=== PATIENT | female | born 1960 | race Caucasian/White ===

== ENCOUNTER → 2016-10-18 | Outpatient (CLI) | payer OTHER ==
[~2016-10-18] MED LIST: ADVIN25/60 INH; FLUT0.15; LISI-788 PO; WARF2TAB PO
== END | disposition home or self-care (01) ==
LOC: C.RDSM 13:00
PROVIDERS: ATTEND Physical Medicine & Rehabilitation Sports Medicine
DX: M25.561 Pain in right knee (principal); Z96.651 Presence of right artificial knee joint

== ENCOUNTER → 2017-09-12 | Outpatient (CLI) | payer OTHER ==
--- NOTE | 2017-09-12 11:22 | DIAGNOSTIC IMAGING REPORT ---
L HAND MIN 3 VIEWS CLINICAL HISTORY: LEFT HAND PAIN pain COMPARISON: None. DISCUSSION: Moderate degenerative change first carpometacarpal joint. Mild degenerative changes second carpometacarpal joint. All remaining osseous structures are unremarkable. No evidence for fracture or dislocation. There is no evidence for soft tissue swelling. IMPRESSION: Moderate degenerative change first carpometacarpal joint and to a lesser extent second carpometacarpal joint. The above report was generated using voice recognition software. It may contain grammatical, syntax or spelling errors. Electronically signed by: Chandrakant Tidwell M.D. 09/12/2017 11:21 AM Dictated Date/Time: 09/12/2017 11:19 AM
== END | disposition home or self-care (01) ==
LOC: C.RDSM 19:38
PROVIDERS: ATTEND Physician Assistant
DX: M79.642 Pain in left hand (principal)

== ENCOUNTER → 2017-10-17 | Outpatient (CLI) | payer OTHER | END | disposition home or self-care (01) | LOC: C.RDSM 15:15 | PROVIDERS: ATTEND Physical Medicine & Rehabilitation Sports Medicine | DX: M17.0 Bilateral primary osteoarthritis of knee (principal); Z96.651 Presence of right artificial knee joint ==

== ENCOUNTER 2018-10-25 06:19 | Inpatient (IN) ==
--- NOTE | 2018-09-29 14:41 | PAT Medication Instructions ---
Medication Instructions Date of Service September 29, 2018 Home Medications Cbd Oil 30 mg PO BID PRN [Advair Diskus] 1 inh INHALATION QAM fluticasone propionate [Flonase Allergy Relief] 1 spray INTRANASAL DAILY PRN ibuprofen 800 mg PO TID lisinopril-hydrochlorothiazide 1 tab PO QAM tramadol 50 - 100 mg PO Q6H PRN ASK your surgeon for instructions ibuprofen 800 mg PO TID DO NOT take the morning of surgery Cbd Oil 30 mg PO BID PRN lisinopril-hydrochlorothiazide 1 tab PO QAM Take morning of surgery With a small sip of water, OTHERWISE NOTHING TO EAT OR DRINK AFTER MIDNIGHT: [Advair Diskus] 1 inh INHALATION QAM fluticasone propionate [Flonase Allergy Relief] 1 spray INTRANASAL DAILY PRN (if needed) tramadol 50 - 100 mg PO Q6H PRN (if needed, may be taken up to four hours before surgery) Other Notes If you have any questions please call us at [phone] or [phone] or [phone] or [phone]
--- NOTE | 2018-10-02 09:02 | Anesthesiology Consultation ---
Date of Service October 02, 2018 Assessment & Plan (1) Encounter for pre-operative examination: Chart Review Chart Review: Acceptable Risk for Surgery and Patient seen in Pre Admission Testing Teaching & Discussion Pre-Anesthesia Teaching/Discussion Notes: Instructed NPO after midnight before surgery,except medications with 15 cc of water. Medication instructions provided according to the PAT guidelines. History Surgery Operation Date: 10/25/18 09:00 Proposed Procedures p Left Total Knee Arthroplasty - Shahab Flores MD Height/Weight Height: 5 ft 2 in Weight: 109.4 kg Allergies Allergy/AdvReac Type Severity Reaction Status Date / Time amoxicillin AdvReac Intermediate YEAST Verified 09/28/18 11:21 INFECTION codeine AdvReac Intermediate HALLUCINATI Verified 09/28/18 11:21 ONS Medications Home Medications Medication Instructions Recorded Confirmed Last Taken Cbd Oil 30 mg PO BID PRN 03/17/18 03/28/18 03/26/18 fluticasone propion-salmeterol 1 inh INHALATION QAM 03/17/18 09/28/18 03/28/18 05:20 [Advair Diskus] fluticasone propionate [Flonase 1 spray INTRANASAL DAILY PRN 03/17/18 09/28/18 03/28/18 05:20 Allergy Relief] ibuprofen 800 mg PO TID 03/17/18 09/28/18 03/20/18 lisinopril-hydrochlorothiazide 1 tab PO QAM 03/17/18 09/28/18 03/27/18 tramadol 50 - 100 mg PO Q6H PRN 03/17/18 09/28/18 Unknown Past Medical History Medical History Asthma STABLE Bradycardia CHRONIC; ASYMPTOMATIC WITH BASELINE IN 50-60'S DJD (degenerative joint disease) Hypertension Jaw pain LEFT SIDED FELT 2/2 GRINDING HS; NO LOCKING Morbid obesity Osteoarthritis Past Family History Family History Brother Family history of diabetes mellitus Sister Family history of diabetes mellitus Mother Family history of diabetes mellitus Past Surgical History Surgical History H/O arthroscopy of right knee 03/28/18= Grade view 1, MAC 3, ETT 7.0 at [facility] H/O left inguinal hernia repair History of ankle surgery RIGHT History of colonoscopy History of repair of rotator cuff RIGHT History of tooth extraction WISDOM TEETH History of total right knee replacement Past Anesthesia History No Family Hx of Anesthesia Complications and Other Chronic bradycardia; she states she was told perioperative bradycardia resolved post-op with remote surgery. She states she was not told about any issues with subsequent anesthesia History of PONV No Motion Sickness Screening History of Motion Sickness: No Social History Smoking Status: Never smoker Do You Dip or Chew Tobacco: Yes (3 CANS/WEEK- ADVISED NOT TO CHEW AM DOS*) Hx Alcohol Use: Yes Alcohol type: beer and wine alcohol intake frequency: a few times a week Hx Substance Use: Yes substance use type: does not use Substance Use Type Other:: CBD OIL OTC BID PRN ANXIETY/INFLAMMATION Exercise / Class Metabolic Activity III < 4 Walking/Shop/Light housework Review of Systems Patient denies chest pain, shortness of breath, cough, wheezing, palpitations. Physical Exam Vital Signs VITALS BP 124/85 P 68 TEMP 98.1 SP02 95%RA RESP 18 PHYSICAL Full neck and c-spine range of motion. Full TMJ range of motion. TMD 3 finger breaths Mallampati Score 1 Dentition: upper partial Lungs: clear throughout to auscultation Cardiac: regular rate and rhythm, no murmurs noted Spine: normal Carotid arteries: negative bruit Extremities: no edema Short neck Testing Electrocardiogram Date: 09/26/18 SB at 55bpm. Possible LAE. No significant change compared to 03/13/18 EKG per cardio. Chest X-Ray Date: 03/15/18 Findings: + NAD Laboratory Results Blood Type O Positive 10/02/18 09:10 Antibody Screen NEGATIVE 10/02/18 09:10 Urine Color Yellow 10/02/18 09:10 Urine Appearance Clear (Clear) 10/02/18 09:10 Urine pH 5.5 (4.5-7.5) 10/02/18 09:10 Ur Specific [place] 1.023 (1.000-1.030) 10/02/18 09:10 Urine Protein Negative (Negative) 10/02/18 09:10 Urine Glucose (UA) Negative (Negative) 10/02/18 09:10 Urine Ketones Negative (Negative) 10/02/18 09:10 Urine Nitrite Negative (Negative) 10/02/18 09:10 Ur Leukocyte Esterase Negative (Negative) 10/02/18 09:10 09/26/18 WBC 5.36 H/H 14.8/46.6 PLATELETS 225 SODIUM 139 POTASSIUM 4.7 CHLORIDE 99 CO2 28 BUN 16 CREATININE 0.8 GLUCOSE 128 PT 12.8 PTT 28 INR 0.93
[2018-10-02 10:06] LABS: Appearance Urine Clear (Clear); Bilirubin Urine Negative (Negative); Blood Urine Negative (Negative); Color Urine Yellow; Glucose Urine UA Negative (Negative); Ketones Urine Negative (Negative); Leukocyte Esterase Urine Negative (Negative); Nitrite Urine Negative (Negative); Protein Urine Negative (Negative); Specific Gravity Urine 1.023 (1.000-1.030); Urobilinogen Urine Negative (Negative); pH Urine 5.5 (4.5-7.5)
--- NOTE | 2018-10-05 17:31 | History and Physical Report ---
DATE OF ADMISSION: 10/25/2018 CHIEF COMPLAINT: Left knee pain. HISTORY OF PRESENT ILLNESS: This 58-year-old white female presents to the office with complaints of left knee pain that has been ongoing for over 2 years. She has tried activity modification as well as oral pain medications, oral anti-inflammatories, and injection therapy without lasting improvement. She elects to proceed with surgical intervention in hopes of alleviating her pain. Pain is affecting her ADLs. It is worse with weightbearing. She notes night pain. No recent effusions. Preoperative imaging has been obtained. PAST MEDICAL HISTORY: Hypertension, asthma, sleep apnea, osteoarthritis, low back pain, obesity, and history of SI joint dysfunction. Known diverticulosis. PREVIOUS SURGERIES: Herniorrhaphy, ankle surgery, knee arthroscopy, right knee TKA 01/27/2016, right shoulder rotator cuff repair with subacromial decompression 03/28/2018, colonoscopy, numerous tooth extractions. ALLERGIES: KNOWN ALLERGY TO AMOXICILLIN WHICH CAUSES YEAST INFECTIONS AND CODEINE WHICH CAUSES NAUSEA. CURRENT MEDICATIONS: CBD oil, CBD gummies, CBD powder, ibuprofen 800 mg t.i.d. p.r.n., Flonase 1 squirt in each nostril daily, tramadol 50 mg p.o. q. 4 hours p.r.n., HCTZ/lisinopril 25 mg/20 mg p.o. daily, Advair inhaler 2 puffs b.i.d., clindamycin capsules prior to dental visits, Tylenol p.r.n. FAMILY HISTORY: Significant for breast cancer, diabetes, hypertension, CHF, and asthma. SOCIAL HISTORY: The patient is . She lives with her significant other. Employed in construction. No cigarette use. She does use spit tobacco daily. Rare ETOH use. REVIEW OF SYSTEMS: A total of 10 systems were reviewed and are significant only for above stated conditions. PHYSICAL EXAMINATION: GENERAL: Well-developed, well-nourished, obese middle aged white female in no acute distress. Sitting in a chair. Alert and oriented. SKIN: Warm and dry with good turgor. No rashes or lesions. No ecchymosis or erythema. HEENT: Normocephalic, atraumatic. Eyes PERRLA, EOMI. Nares patent bilaterally without turbinate enlargement. Oropharynx without erythema or exudate. No lesions noted. Uvula midline. Oral mucosa moist. Fair dentition. Partial denture plate is noted. Multiple fillings. HEART: RRR. No MGR. LUNGS: Clear to auscultation bilaterally. No crackles, rhonchi or wheezing. Fair air movement. ABDOMEN: Obese. Bowel sounds present x4, soft, nontender. No organomegaly. No masses. MUSCULOSKELETAL: Left knee evaluation reveals no intra-articular effusion. Full terminal extension. Flexion to greater than 100 degrees. Strength is 5/5 with good quad tone. Stable collateral ligaments. No defect in the patellar tendon or quadriceps tendon. She has significant medial joint line pain and peripatellar discomfort with palpation. No lateral joint line discomfort today. Ambulatory with a slightly antalgic gait when she rises from a chair. NEUROLOGIC: Gross sensation is intact across the lower extremities by soft touch. Peripheral pulses are 2+. Cranial nerves II-XII are intact. DATA: Radiographic imaging previously obtained shows end-stage DJD of her left knee. The right knee has a total knee arthroplasty. Hardware is visible. Periarticular osteophytes, subchondral sclerosis, and joint space narrowing are all present in the left knee. IMPRESSION: Left knee end-stage degenerative joint disease. PLAN: Postoperative prescriptions for tramadol and Coumadin will be provided. The patient does not do well with narcotics. She does have hallucinations as well as nausea. Preoperative lab work, EKG, and chest x-ray have been ordered. Medical clearance has been requested from her PCP, Dr. Stapleton. Anticipate discharge to home with home health services versus outpatient therapy. She already has a walker. [facility]
[~2018-10-25 06:19] MED LIST changes: -ADVIN25/60 INH; +CEFAZOLIN 2000MG 2,000 MG/15 ML SYR IV SCH; -FLUT0.15; -LISI-788 PO; +LR 500ML BOLUS, THEN 15ML/HR IV SCH; +LR 60ML/HR IV SCH; +ROPIVACAINE 0.5% HCL/PF 150 MG, BUPIVACAINE 0.5% MPF 30 ML, EPINEPHrine 0.15 MG, Ketoro... INFIL SCH; +TRANEXAMIC ACID 1,000 MG **IV Pre-op IV SCH; -WARF2TAB PO
[2018-10-25] MEDS ORDERED: BUPIVACAINE 0.5 % 5 MG/1 ML PF 10ML VIAL ONE (06:31)
[2018-10-25] MEDS ORDERED: ROPIVACAINE 0.5% 5 MG/ML 30 ML VIAL ONE (06:31)
--- NOTE | 2018-10-25 06:35 | History & Physical Bridge Note ---
Date of Service October 25, 2018 History & Physical Bridge Note I have examined the patient, reviewed the History & Physical and in the interval since the performance of the History & Physical I have noted the following changes of clinical significance:consent obtained. no changes noted
[2018-10-25] MEDS ORDERED: fentaNYL citrate 100 MCG/2 ML VIAL ONE (07:25)
[2018-10-25] MEDS ORDERED: MIDAZOLAM HCL 1 MG/ML 2ML VIAL ONE (07:25)
[2018-10-25] MEDS ORDERED: POVIDONE-IODINE OP SOLN 30 ML BTL ONE (08:24)
[2018-10-25] MEDS ORDERED: ORTHO JOINT ANESTHETIC ONE (08:24)
[2018-10-25] MEDS ORDERED: ONDANSETRON INJ 2 MG/ML 2 ML VIAL IV PRN ×2 (08:34→11:15)
[2018-10-25] MEDS ORDERED: ATROPINE SULFATE 0.1 MG/ML 10ML SYR IV PRN (08:34)
[2018-10-25] MEDS ORDERED: ePHEDrine sulfate 50 MG/ML AMP IV PRN (08:34)
[2018-10-25] MEDS ORDERED: fentaNYL citrate 100 MCG/2 ML VIAL IV PRN (08:34)
[2018-10-25] MEDS ORDERED: LIDOCAINE HCL 2% 2 ML VIAL/AMP(20MG/ML) INFIL ONE (09:24)
[2018-10-25] MEDS ORDERED: PROPOFOL IV EMULSION 10 MG/ML 20 ML VIAL IV ONE (09:24)
[2018-10-25] MEDS ORDERED: ePHEDrine sulfate 50 MG/ML SYR ONE (09:31)
[2018-10-25] MEDS ORDERED: PHENYLEPHRINE 100MCG/ML 5ML SYR ONE (09:31)
--- NOTE | 2018-10-25 10:09 | Post Operative Brief Note ---
Immediate Post Op Note v1 Date of Surgery October 25, 2018 Pre & Post Diagnosis Operation Date: 10/25/18 08:50 Pre-Op Diagnosis: Left Knee Degenerative Joint Disease Post-Op Diagnosis: Left Knee Degenerative Joint Disease Procedure Operation Date: 10/25/18 08:50 Actual Procedures p Left Total Knee Arthroplasty, Cemented(Left) - Shahab Flores MD Surgeon Shahab Flores MD [facility] Estimated Blood Loss 50 Findings Consistent with Post-Op Diagnosis
--- NOTE | 2018-10-25 10:15 | Operative Report ---
Post Operative Report Pre & Post Diagnosis Operation Date: 10/25/18 08:50 Pre-Op Diagnosis: Left Knee Degenerative Joint Disease Post-Op Diagnosis: Left Knee Degenerative Joint Disease Procedure Operation Date: 10/25/18 08:50 Actual Procedures p Left Total Knee Arthroplasty, Cemented(Left) - Shahab Flores MD Surgeon TRESA Flores MD Physical Ther [facility] Estimated Blood Loss 50 Findings Consistent with Post-Op Diagnosis Specimens see operative report Drains none Complications none Disposition Accompanied Patient To Recovery: Yes Disposition: Recovery Room Indications This 58-year-old white female presented to the office with complaints of intractable left knee pain. She had tried conservative care measures without improvement. She elected to proceed with surgical intervention after being educated about potential risks and outcomes. Preoperative imaging was obtained. Description of Procedure Patient was administered a spinal anesthetic and was then taken to the operating room where she was given sedation. She was prepped and draped in the usual sterile fashion. Please see Dr. Flores's operative report for specifics of the procedure. I was present for the entire case from initial patient positioning through final wound closure. Assistance was provided in tissue retraction, hemostasis, trial implant placement, final implant placement, and final wound closure. Patient was taken to the recovery room in satisfactory condition. I attest to the content of the Intraoperative Record and any orders documented therein. Any exceptions are noted below.
--- NOTE | 2018-10-25 10:23 | Operative Report ---
DATE OF OPERATION: 10/25/2018 SURGEON: Shahab Flores MD. DISH NETWORK INSTALLER: Navi Sorto PA-C. No resident or fellow available. PREOPERATIVE DIAGNOSES: Osteoarthritis left knee with varus deformity, tricompartmental disease. POSTOPERATIVE DIAGNOSES: Osteoarthritis left knee with varus deformity, tricompartmental disease. OPERATION PERFORMED: Cemented left total knee replacement. SUMMARY OF IMPLANTS: Size 2.5 left posterior cruciate substituting femur, size 2.5 mobile bearing tray, size 2.5 x 12.5 posterior cruciate stabilized insert, oval domed 3 pegged patella size 35, 2 bags of Palacos G cement. Bone pathology pending, DVT prophylaxis with Coumadin. ESTIMATED BLOOD LOSS: 50 mL. CRYSTALLOID: 1700 mL. DESCRIPTION OF PROCEDURE: The patient was appropriately identified, site verified, consent verified. Antibiotics confirmed as being given. The left leg was prepped and draped in usual routine fashion. Tourniquet inflated to 300 mmHg after exsanguination of limb with a rubber Esmarch bandage for a total of 46 minutes. Midline exposure utilized. Parapatellar arthrotomy performed. Synovectomy completed. Appropriate soft tissues released. Distal femur then entered. Cruciates resected. Tibia subluxated. The menisci resected. Distal femur cut 12 mm. Proximal tibia cut 4 mm, extension gap was excellent. Femur was sized to be anywhere between a 3.5 to 2, so it was measured 3 and cut 2.5 with just some very minimal anterior notching. The flexion gap was then checked. It was excellent. This was after all the anterior and posterior condylar and chamfer cuts were then made. The posterior capsule was then injected with 2 syringes of Orthomix. The box cut was then made and size 2.5 fit well. The tibia was subluxated, was sized to 2.5 and broached and reamed appropriately and a trial reduction with a 12.5 provided excellent stability in all ranges including mid range. There was no loss of extension. The patella tracked well. The patella was quite small. It was resected leaving about 14 mm and a size 35 button was then seated after the seating holes made with the trial and everything tracked well. The Orthomix was all injected about the knee. The knee was irrigated with Betadine and Pulsavac. Trial implants removed. The permanents cemented into position, the tibia followed by femur, followed by the patella. After 12 minutes, the tourniquet deflated. Minor bleeding points controlled with electrocautery. After 14 minutes, the knee was flexed. Minor cement removal required. Wound irrigated with Betadine and Pulsavac and then the permanent liner seated. The knee reduced and closed with #2 Vicryl for the capsule layer, 2-0 Vicryl for the subcutaneous layer and stainless steel clips for skin. Appropriate dressing applied. The patient transferred to Recovery Room in satisfactory condition having tolerated the procedure well. I attest to the content of the Intraoperative Record and any orders documented therein. Any exception s are noted below.
--- NOTE | 2018-10-25 10:48 | Anesthesiology Progress Note ---
Date of Service October 25, 2018 Anesthesia Post Procedure Vital Signs Vital Signs: Temp Pulse Pulse Resp BP Pulse Ox 10/25/18 10:46 97.9 F 99 10/25/18 10:12 98.1 F 68 16 104/64 98 10/25/18 06:46 98.2 F 63 18 133/92 97 Pain Intensity Left Knee: Pain Intensity: 0 Transfer of Care Handoff Completed per policy Notes Mental Status: alert / awake / arousable and participated in evaluation Patient Amnestic to Procedure: Yes Nausea / Vomiting: adequately controlled Pain: adequately controlled Airway Patency, RR, SpO2: stable & adequate BP & HR: stable & adequate Hydration State: stable & adequate Neuraxial Anesthesia: was administered and sensory block is resolving Anesthetic Complications: no major complications apparent and Pt Satisfied with anesthetic care
[2018-10-25] MEDS ORDERED: MAGNESIUM HYDROXIDE SUSP 30 ML UDC PO PRN (11:15)
[2018-10-25] MEDS ORDERED: BISACODYL 10 MG SUPP PR PRN (11:15)
[2018-10-25] MEDS ORDERED: METOCLOPRAMIDE HCL INJ 5 MG/ML 2 ML VIAL IV PRN (11:15)
[2018-10-25] MEDS ORDERED: SODIUM CHLORIDE 0.9% 1000ML 1,000 ML IV SCH (11:15)
[2018-10-25] MEDS ORDERED: FLUTICASONE PROPIONATE NA SPR 16 GM BTL PRN (11:15)
[2018-10-25] MEDS ORDERED: ALUMINUM/MAGNESIUM SUSP 30 ML UDC PO PRN (11:15)
[2018-10-25] MEDS ORDERED: DiphenhydrAMINE HCL 50 MG/ML VIAL IV PRN (11:15)
[2018-10-25] MEDS ORDERED: HYDROmorphone INJ 0.5 MG/0.5 ML SYR IV PRN (11:15)
[2018-10-25] MEDS ORDERED: NALOXONE HCL 0.4 MG/1 ML VIAL/CARP IV PRN (11:15)
--- NOTE | 2018-10-25 11:16 | XRay Report ---
XR knee LT 2V routine CLINICAL HISTORY: Postoperative evaluation. COMPARISON: Left knee radiographs November 28, 2017. FINDINGS: Alignment of the left knee arthroplasty is anatomic. There is no fracture or unexpected ra diopaque foreign body. Skin craig are present. IMPRESSION: Expected findings following total left knee arthroplasty. Electronically signed by: Dank Palma M.D. 10/25/2018 11:15 AM
[2018-10-25] MEDS: KETOROLAC 30 MG/ML VIAL IV SCH ×3 (12:32→23:14)
[2018-10-25] MEDS: ORTHO WARFARIN NOMOGRAM SCH (12:56)
--- NOTE | 2018-10-25 13:03 | Progress Note ---
DATE: 10/25/2018 Postop check status post left total knee replacement. She is sitting up in bed, has no chest pain, shortness of breath, fever, chills, nausea, vomiting or headache. She still has some effects of her spinal and notes that she is starting to get the leg to feel more normal. Can do some toe curls and ankle curls, but no major extension and no major straight leg raising it. Wound dressing clean, dry and intact. She denies chest pain, shortness of breath, fever, chills, nausea, vomiting or headache. Vital signs are stable. She is afebrile. Wound dressing clean, dry and intact. Postop x-rays look excellent. ASSESSMENT: Doing well. Continue postoperative care pathway, mobilize when the spinal effects wear off completely. Coumadin this evening per nomogram.
[2018-10-25] MEDS: ACETAMINOPHEN 500 MG TAB PO SCH ×2 (13:47→21:06)
[2018-10-25] MEDS: OXYCODONE HCL IR 5 MG TAB (IMMEDIATE RELEASE) PO PRN ×2 (14:45→21:06)
[2018-10-25] MEDS ORDERED: WARFARIN SOD 5 MG TAB PO SCH (16:00)
[2018-10-25] MEDS ORDERED: TRANEXAMIC ACID 1,000 MG in 0.9 % SODIUM CHLORIDE 100 ML IV SCH (16:00)
[2018-10-25] MEDS: FERROUS GLUCONATE 324 MG TAB PO SCH (17:53)
[2018-10-25] MEDS: CEFAZOLIN 2000MG 2,000 MG/15 ML SYR IV SCH (17:54)
[2018-10-25] MEDS ORDERED: SENNA 8.6 MG TAB PO SCH (21:00)
[2018-10-25] MEDS: DOCUSATE SODIUM 100 MG CAP PO SCH (21:06)
[2018-10-26] MEDS: CEFAZOLIN 2000MG 2,000 MG/15 ML SYR IV SCH (01:47)
[2018-10-26] MEDS: OXYCODONE HCL IR 5 MG TAB (IMMEDIATE RELEASE) PO PRN ×3 (01:50→11:20)
[2018-10-26] MEDS: KETOROLAC 30 MG/ML VIAL IV SCH (05:35)
[2018-10-26] MEDS: ACETAMINOPHEN 500 MG TAB PO SCH (05:35)
--- NOTE | 2018-10-26 06:25 | Progress Note ---
DATE: 10/26/2018 SUBJECTIVE: Postop check status post left total knee replacement. The patient is doing well, sitting up in bed, has no issues. Denies chest pain, shortness of breath, fever, chills, nausea, vomiting, or headache. OBJECTIVE: Vital signs are stable. She is afebrile. Neurovascular check, femoral sciatic nerve is normal. Wound dressing clean, dry, and intact. Laboratory work today is pending. ASSESSMENT: Doing well. PLAN: Discharge to home today. Follow up in 2 weeks for staple removal. Coumadin per routine.
--- NOTE | 2018-10-26 06:35 | Discharge Summary ---
Waiting for to show up. At this point in time, we will discharge to home today. Please see progress note today. Please see previous discharge summary dictated. Unsure why it was not typed yet.
[2018-10-26] MEDS ORDERED: dexAMETHasone 10 MG in SYRINGE 0 ML IV SCH (08:00)
[2018-10-26 08:11] LABS: Hematocrit (blood only) 37.8 % (37-47); Hemoglobin 12.5 g/dL (12.0-16.0); Mean Corpuscular Hgb Conc 33.1 g/dL (32-36); Mean Corpuscular Volume 91.7 fL (80-100); Mean Platelet Volume 11.8 fL (7.4-10.4); Platelet Count 163 K/uL (130-400); RDW Standard Deviation 46.3 fL (36.4-46.3); Red Blood Count 4.12 M/uL (4.2-5.4); White Blood Count 7.54 K/uL (4.8-10.8)
--- NOTE | 2018-10-26 08:15 | Discharge Summary ---
CHIEF COMPLAINT: Left knee pain. HISTORY OF PRESENT ILLNESS: Underwent elective left total knee replacement. The patient has done well postop. At this point in time, there are no major issues. PAST MEDICAL HISTORY: Remarkable for hypertension, asthma, sleep apnea, osteoarthritis, low back pain, obesity, SI joint dysfunction, diverticulosis. PAST SURGICAL HISTORY: Include herniorrhaphy, ankle surgery, knee arthroscopies, total knee replacement in 2016 on the opposite side, rotator cuff repair, subacromial decompression, colonoscopy. ALLERGIES: AMOXICILLIN WHICH CAUSES YEAST INFECTION AND CODEINE WHICH CAUSES NAUSEA. PREADMISSION MEDICATIONS: Include CBD powder, CBD gummies, ibuprofen p.r.n., Flonase, tramadol, hydrochlorothiazide-lisinopril, Advair, clindamycin prior to dental visits, p.r.n. Tylenol. Pain medications prescription, please see script. Coumadin, keep INR 1.8-2.2. Discharge on 4 mg if INR is 1.5 or less tomorrow. 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 She does use some chewing tobacco. Rare alcohol use. REVIEW OF SYSTEMS: Noncontributory. ASSESSMENT: Overall, doing well status post left total knee replacement. Plan is for discharge on 10/26/2018. Discharge on Coumadin as noted above. Follow up in 2 weeks for staple removal.
[2018-10-26 08:23] LABS: Prothrombin Time 10.7 Seconds (9.0-12.0)
[2018-10-26 08:46] VITALS: BP 117/77; PULSE 77; TEMP 98.2; O2SAT 97
[2018-10-26] MEDS: FERROUS GLUCONATE 324 MG TAB PO SCH (08:49)
[2018-10-26 08:50] LABS: BUN Creatinine Ratio 21.2 (10-20); Calcium 8.6 mg/dl (8.5-10.1); Est GFR (African American) 95.6; Est GFR (Non-African American) 82.5; Potassium 4.3 mmol/L (3.5-5.1)
[2018-10-26] MEDS: DOCUSATE SODIUM 100 MG CAP PO SCH (08:50)
[2018-10-26] MEDS ORDERED: FLUTICASONE/SALMETEROL 250/50 (ADVAIR) 14 PUFF/1 INHALER INH SCH (09:00)
[2018-10-26] MEDS ORDERED: MULTIVITAMIN TAB PO SCH (09:00)
[2018-10-26] MEDS ORDERED: LISINOPRIL/HCTZ 20/25MG 1 TAB PO SCH (09:00)
[2018-10-26] MEDS: ORTHO WARFARIN NOMOGRAM SCH (09:44)
[2018-10-26] MEDS ORDERED: WARFARIN SOD 5 MG TAB PO ONE (11:00)
== END 2018-10-26 11:52 | disposition home health service (06) | DRG 470 ==
LOC: ASU 06:19 → 3E 10:21